=== PATIENT | female | born 1960 | race African-American/Black ===

== ENCOUNTER 2019-10-30 17:13 | Inpatient (IN) | payer MEDICARE, OTHER, MEDICAID ==
[~2019-10-30] VITALS: Ht 157.5 cm; Wt 42.6 kg
[~2019-10-30 17:13] MED LIST: FERR325T30; SERT-112 PO
[2019-10-30] MEDS ORDERED: MORPHINE SULFATE 4 MG/ML CPJ (NOT FOR IM USE) IV STA (18:34)
[2019-10-30] MEDS ORDERED: ONDANSETRON HCL 4MG/2ML INJ IV STA (18:34)
[2019-10-30] MEDS ORDERED: SODIUM CHLORIDE 0.9% 1,000 ML IV ONE (18:34)
[2019-10-30 19:25] LABS: HEMATOCRIT. 39.9 % (36.0-48.0); HEMOGLOBIN. 13.2 g/dL (12.0-16.0); MEAN CORPUSCULAR HEMOGLOBIN 27.8 pg (28.0-32.0); MEAN PLATELET VOLUME 8.5 fl (7.4-10.4); PLATELET 336 x1000/uL (130-400); RED BLOOD CELL COUNT 4.76 mill/uL (4.2-5.4); RED CELL DISTRIBUTION WIDTH 17.3 % (11.6-14.6)
[2019-10-30 19:26] LABS: CHLORIDE 102 mEq/L (98-107)
[2019-10-30 19:30] LABS: PROTHROMBIN TIME 10.3 sec (9.6-11.0)
[2019-10-30 19:54] LABS: PLATELET ESTIMATE NORMAL
[2019-10-30] MEDS ORDERED: FUROSEMIDE 100MG/10ML VIAL IV STA (20:47)
[2019-10-30] MEDS ORDERED: DEXTROSE 50% WATER 50ML SYRINGE IV ONE (21:00)
[2019-10-30] MEDS ORDERED: CALCIUM CHLORIDE 1GM/10ML SYR IV ONE (21:00)
[2019-10-30] MEDS ORDERED: INSULIN REGULAR (HUMULIN R) 300UNITS/3ML IV ONE (21:00)
[2019-10-30] MEDS ORDERED: IPRATROPIUM/ALBUTEROL 0.5-3(2.5)MG/3ML NEB ORI PRN (22:00)
[2019-10-30] MEDS ORDERED: LORAZEPAM 0.5MG TABLET PO PRN (22:00)
[2019-10-30] MEDS ORDERED: CLONIDINE 0.1MG TABLET PO PRN (22:00)
[2019-10-30] MEDS ORDERED: DOCUSATE SODIUM 100MG CAPSULE PO PRN (22:00)
[2019-10-30] MEDS ORDERED: MAGNESIUM/ALUMINUM HYDROXIDE/SIMETHICONE 30ML UDC PO PRN (22:00)
[2019-10-30] MEDS ORDERED: DIPHENHYDRAMINE 50MG/ML VIAL IV PRN (22:00)
[2019-10-30] MEDS ORDERED: TRAMADOL 50MG TABLET PO PRN (22:00)
[2019-10-30] MEDS ORDERED: ACETAMINOPHEN 325MG TABLET PO PRN ×2 (22:00)
[2019-10-30] MEDS ORDERED: GUAIFENESIN 200MG/10ML SUGAR FREE UDC PO PRN (22:00)
[2019-10-30] MEDS ORDERED: ZOLPIDEM TARTRATE 5MG TABLET PO PRN (22:00)
[2019-10-30] MEDS ORDERED: ENOXAPARIN 40MG/0.4ML SYR SUBCUT SCH (22:00)
[2019-10-30] MEDS ORDERED: NITROGLYCERIN 0.4MG TABLET SL SL PRN (22:00)
[2019-10-30] MEDS ORDERED: CEFTRIAXONE 1 G PREMIX 50 ML IV SCH (22:30)
[2019-10-30] MEDS: INSULIN LISPRO 100 UNITS/ML SUBCUT SCH (22:30)
[2019-10-30] MEDS ORDERED: MORPHINE SULFATE 4 MG/ML CPJ (NOT FOR IM USE) IV PRN (22:30)
[2019-10-30 22:31] LABS: T4 FREE 1.12 ng/dL (0.76-1.46)
[2019-10-30 22:46] LABS: FOLIC ACID (FOLATE) SERUM 3.6 ng/mL (>5.38)
[2019-10-30] MEDS ORDERED: SODIUM POLYSTYRENE SULFONATE 15 G/60 ML BOT PO NR (23:00)
[2019-10-30] MEDS: BLOOD SUGAR DIAGNOSTIC STRIP TEST SCH (23:04)
[2019-10-30] MEDS ORDERED: CEFTRIAXONE SODIUM 1 G/VIAL ONE (23:12)
[2019-10-30] MEDS: CEFTRIAXONE 1,000 MG in DEXTROSE 5% WATER 50 ML IV SCH (23:52)
[2019-10-31] VITALS (11 sets, daily range): BP systolic 81–147; BP diastolic 39–99
[2019-10-31] MEDS: ONDANSETRON HCL 4MG/2ML INJ IV PRN (04:24)
[2019-10-31] MEDS: BLOOD SUGAR DIAGNOSTIC STRIP TEST SCH ×4 (06:50→21:00)
[2019-10-31] MEDS: INSULIN LISPRO 100 UNITS/ML SUBCUT SCH ×4 (07:20→21:00)
[2019-10-31 07:50] LABS: HEMOGLOBIN. 13.9 g/dL (12.0-16.0); MEAN CORPUSCULAR HEMOGLOBIN 27.6 pg (28.0-32.0); MEAN CORPUSCULAR VOLUME 85.4 fL (81.0-99.0); MEAN PLATELET VOLUME 8.7 fl (7.4-10.4); PLATELET 305 x1000/uL (130-400); RED BLOOD CELL COUNT 5.04 mill/uL (4.2-5.4); RED CELL DISTRIBUTION WIDTH 17.4 % (11.6-14.6)
[2019-10-31 08:00] LABS: CHLORIDE 98 mEq/L (98-107)
[2019-10-31 08:07] LABS: PHOSPHORUS 7.7 mg/dL (2.5-4.9)
[2019-10-31 08:08] LABS: LDL CHOLESTEROL 147 mg/dL (5-100)
[2019-10-31 08:09] LABS: CREATINE KINASE 131 IU/L (26-192); CREATINE KINASE MB FRACTION 1.6 ng/mL (0.5-3.6); HDL CHOLESTEROL 51 mg/dL (40-59)
[2019-10-31] MEDS ORDERED: SODIUM BICARBONATE 8.4% 1 MEQ/ML 50ML SYR IV NR (08:52)
[2019-10-31] MEDS: ZINC SULFATE 220 MG ( 50 ) CAPSULE PO SCH (09:00)
[2019-10-31] MEDS: ASCORBIC ACID 500 MG TABLET PO SCH ×2 (09:00→21:31)
[2019-10-31] MEDS: FAMOTIDINE 20MG TABLET PO SCH (09:00)
[2019-10-31] MEDS ORDERED: DEXTROSE 50% WATER 50ML SYRINGE IV SCH (09:30)
[2019-10-31] MEDS ORDERED: INSULIN REGULAR (HUMULIN R) UD 100 UNITS/ML SYR IV SCH (09:30)
[2019-10-31] MEDS ORDERED: SODIUM BICARBONATE 4% (2.4MEQ) 5ML VIAL IV ONE (10:15)
[2019-10-31] MEDS ORDERED: LIDOCAINE HCL 1% 20ML VIAL (Pyxis) INJ ONE (10:16)
[2019-10-31] MEDS ORDERED: HEPARIN 1000 UNITS/ML 10ML ONE (10:16)
[2019-10-31] MEDS: SODIUM CHLORIDE 0.9% 1,000 ML IV SCH ×2 (13:30→22:25)
[2019-10-31 16:04] LABS: CREATINE KINASE MB FRACTION 2.4 ng/mL (0.5-3.6)
[2019-10-31 17:11] LABS: CLARITY URINE CLOUDY (CLEAR); COLOR URINE YELLOW (YELLOW); KETONES URINE TRACE (NEGATIVE); LEUKOCYTE ESTERASE URINE 2+ (NEGATIVE); NITRITE URINE NEGATIVE (NEGATIVE); OCCULT BLOOD URINE 3+ (NEGATIVE); PROTEIN URINE 2+ (NEGATIVE); SPECIFIC GRAVITY URINE 1.016 (1.005-1.030); UROBILINOGEN URINE 0.2 E.U./dL (0.2-1.0)
[2019-10-31 17:34] LABS: PLATELET ESTIMATE NORMAL
[2019-10-31] MEDS: ENOXAPARIN 30MG/0.3ML SYR SUBCUT SCH (18:08)
[2019-10-31] MEDS: CEFTRIAXONE 1,000 MG in DEXTROSE 5% WATER 50 ML IV SCH (21:31)
[2019-10-31] MEDS: DEXTROSE 50% WATER 50ML SYRINGE IV PRN (21:56)
[2019-11-01] VITALS (12 sets, daily range): BP systolic 91–114; BP diastolic 54–77
[2019-11-01] MEDS: BLOOD SUGAR DIAGNOSTIC STRIP TEST SCH ×4 (06:38→20:43)
[2019-11-01] MEDS: INSULIN LISPRO 100 UNITS/ML SUBCUT SCH ×4 (06:38→20:42)
[2019-11-01 07:21] LABS: HEMATOCRIT. 37.9 % (36.0-48.0); HEMOGLOBIN. 12.4 g/dL (12.0-16.0); MEAN CORPUSCULAR HEMOGLOBIN 27.9 pg (28.0-32.0); MEAN PLATELET VOLUME 8.8 fl (7.4-10.4); PLATELET 230 x1000/uL (130-400); RED BLOOD CELL COUNT 4.46 mill/uL (4.2-5.4); RED CELL DISTRIBUTION WIDTH 17.3 % (11.6-14.6)
[2019-11-01 07:26] LABS: PHOSPHORUS 3.4 mg/dL (2.5-4.9)
[2019-11-01] MEDS: ENOXAPARIN 30MG/0.3ML SYR SUBCUT SCH (08:58)
[2019-11-01] MEDS: ASCORBIC ACID 500 MG TABLET PO SCH ×2 (08:58→20:42)
[2019-11-01] MEDS: FAMOTIDINE 20MG TABLET PO SCH (08:58)
[2019-11-01] MEDS: ZINC SULFATE 220 MG ( 50 ) CAPSULE PO SCH (08:58)
[2019-11-01] MEDS: DEXT 5%/0.9% NACL 1,000 ML IV SCH ×2 (09:14→20:42)
[2019-11-01 10:56] LABS: BG BASE EXCESS 1.3 mmol/L (-2.0-2.0); BG CARBOXYHEMOGLOBIN 0.1 % (0.5-1.5); BG DEOXYHEMOGLOBIN 2.8 % (0.0-5.0); BG FRACTION INSPIRED OXYGEN 21; BG HCO3 ACT 25.3 mmol/L (22.0-26.0); BG METHEMOGLOBIN 0.4 % (0.0-1.5); BG OXYGEN SATURATION 97.2 % (92.0-98.5); BG OXYHEMOGLOBIN 96.7 % (94.0-97.0); BG PCO2 37.7 mmHg (35.0-45.0); BG PH 7.444 (7.350-7.450); BG PO2 97.9 mmHg (75.0-100.0); BG SAMPLE SITE LEFT BRACHIAL; BG TOTAL HEMOGLOBIN 12.9 g/dL (12.0-18.0); BG VENT MODE ROOM AIR
[2019-11-01 13:12] LABS: PLATELET ESTIMATE NORMAL
[2019-11-01] MEDS ORDERED: MORPHINE SULFATE 2 MG/ML CPJ (NOT FOR IM USE) IV PRN (14:42)
[2019-11-01] MEDS: CEFTRIAXONE 1,000 MG in DEXTROSE 5% WATER 50 ML IV SCH (20:42)
[2019-11-02] VITALS (20 sets, daily range): BP systolic 97–122; BP diastolic 57–85
[2019-11-02] MEDS: DEXT 5%/0.9% NACL 1,000 ML IV SCH ×2 (05:00→17:35)
[2019-11-02] MEDS: DEXTROSE 50% WATER 50ML SYRINGE IV PRN ×3 (05:38→20:39)
[2019-11-02] MEDS: BLOOD SUGAR DIAGNOSTIC STRIP TEST SCH ×4 (05:39→20:40)
[2019-11-02 07:05] LABS: HEMATOCRIT. 34.5 % (36.0-48.0); HEMOGLOBIN. 11.1 g/dL (12.0-16.0); MEAN CORPUSCULAR HEMOGLOBIN 27.6 pg (28.0-32.0); MEAN CORPUSCULAR VOLUME 85.5 fL (81.0-99.0); MEAN PLATELET VOLUME 8.7 fl (7.4-10.4); PLATELET 182 x1000/uL (130-400); RED BLOOD CELL COUNT 4.04 mill/uL (4.2-5.4); RED CELL DISTRIBUTION WIDTH 16.9 % (11.6-14.6)
[2019-11-02] MEDS: INSULIN LISPRO 100 UNITS/ML SUBCUT SCH ×4 (07:20→20:40)
[2019-11-02] MEDS ORDERED: IOHEXOL-300 50 ML BOTTLE IV ONE (07:21)
[2019-11-02] MEDS ORDERED: LIDOCAINE HCL 1% 20ML VIAL (Pyxis) INJ ONE (07:21)
[2019-11-02] MEDS ORDERED: SODIUM BICARBONATE 4% (2.4MEQ) 5ML VIAL IV ONE (07:21)
[2019-11-02 07:24] LABS: HEPATITIS B SURFACE AB < 3.1 mIU/mL
[2019-11-02] MEDS: ONDANSETRON HCL 4MG/2ML INJ IV PRN (07:31)
[2019-11-02 07:34] LABS: HEPATITIS B SURFACE ANTIGEN NEGATIVE
[2019-11-02 07:51] LABS: PHOSPHORUS 1.8 mg/dL (2.5-4.9)
[2019-11-02] MEDS ORDERED: FENTANYL CITRATE/PF 50MCG/ML 2ML VIAL ONE (08:03)
[2019-11-02] MEDS ORDERED: FENTANYL CITRATE/PF 50MCG/ML 2ML VIAL IV ONE (08:30)
[2019-11-02] MEDS ORDERED: POTASSIUM PHOS,M-BASIC-D-BASIC 15 MMOL in DEXT 5% WATER 245 ML IV NR (10:00)
[2019-11-02] MEDS: ZINC SULFATE 220 MG ( 50 ) CAPSULE PO SCH (11:15)
[2019-11-02] MEDS: FAMOTIDINE 20MG TABLET PO SCH (11:15)
[2019-11-02] MEDS: ASCORBIC ACID 500 MG TABLET PO SCH ×2 (11:15→20:39)
[2019-11-02 16:27] LABS: PLATELET ESTIMATE NORMAL
[2019-11-02] MEDS: CEFTRIAXONE 1,000 MG in DEXTROSE 5% WATER 50 ML IV SCH (20:39)
[2019-11-03] VITALS (9 sets, daily range): BP systolic 101–129; BP diastolic 58–82
[2019-11-03] MEDS: DEXT 5%/0.9% NACL 1,000 ML IV SCH ×2 (02:01→11:00)
[2019-11-03] MEDS: INSULIN LISPRO 100 UNITS/ML SUBCUT SCH ×2 (05:43→11:12)
[2019-11-03] MEDS: BLOOD SUGAR DIAGNOSTIC STRIP TEST SCH ×2 (05:43→11:12)
[2019-11-03] MEDS: ASCORBIC ACID 500 MG TABLET PO SCH (07:53)
[2019-11-03] MEDS: ZINC SULFATE 220 MG ( 50 ) CAPSULE PO SCH (07:53)
[2019-11-03] MEDS: FAMOTIDINE 20MG TABLET PO SCH (07:53)
[2019-11-03] MEDS: ENOXAPARIN 30MG/0.3ML SYR SUBCUT SCH (09:00)
[2019-11-03] MEDS ORDERED: MEGESTROL ACETATE 400 MG/10 ML UDC PO SCH (09:00)
[2019-11-03] MEDS: ONDANSETRON HCL 4MG/2ML INJ IV PRN (11:05)
== END 2019-11-03 15:15 | DRG 871 ==
LOC: ER 17:13 → SUPCPDRO 21:53 → MICUSO 21:57 → 3WST 10-31 03:51
PROVIDERS: ADMIT Internal Medicine; ATTEND Internal Medicine
PROC: 02H633Z Insertion of Infusion Device into Right Atrium, Percutaneous Approach (ICD-10-PCS; principal; 2019-10-31)
PROC: B548ZZA Ultrasonography of Superior Vena Cava, Guidance (ICD-10-PCS; 2019-10-31)
PROC: 0T9430Z Drainage of Left Kidney Pelvis with Drainage Device, Percutaneous Approach (ICD-10-PCS; 2019-11-02)
DX: A41.9 Sepsis, unspecified organism (principal); N17.0 Acute kidney failure with tubular necrosis; E43 Unspecified severe protein-calorie malnutrition; N13.8 Other obstructive and reflux uropathy; N13.30 Unspecified hydronephrosis; E87.1 Hypo-osmolality and hyponatremia; Z68.1 Body mass index [BMI] 19.9 or less, adult; E87.5 Hyperkalemia; E11.9 Type 2 diabetes mellitus without complications; I10 Essential (primary) hypertension; Z87.440 Personal history of urinary (tract) infections; Z79.899 Other long term (current) drug therapy; Z85.43 Personal history of malignant neoplasm of ovary; Z91.14 Patient's other noncompliance with medication regimen; Z03.818 Encounter for observation for suspected exposure to other biological agents ruled out
CPT/HCPCS: 36415; 36600; 50432; 71045; 74176; 76770; 76937; 80048; 80053; 80061; 81003; 82375; 82550; 82553; 82607; 82746; 82805; 82962; 83036; 83540; 83550; 83605; 83735; 84100; 84145; 84439; 84443; 84484; 85025; 85379; 86304; 86705; 86706; 86803; 87340; 93005; 93306; 93970; 97165; 99152; 99153; 99285; C1729; C1752; C1769; C1887; J0696; J1200; J1644; J1650; J1815; J1940; J2270; J2405; J3010; J3490; J7030; J7042; J7060; L8514; Q9967; G0500; U0003-CS

== ENCOUNTER 2019-11-06 10:50 | Inpatient (IN) | payer MEDICARE, OTHER ==
[~2019-11-06] VITALS: Ht 160 cm; Wt 54.9 kg
[2019-11-06 12:21] LABS: HEMATOCRIT. 34.2 % (36.0-48.0); HEMOGLOBIN. 11.3 g/dL (12.0-16.0); MEAN CORPUSCULAR HEMOGLOBIN 27.8 pg (28.0-32.0); MEAN CORPUSCULAR VOLUME 84.5 fL (81.0-99.0); MEAN PLATELET VOLUME 8.7 fl (7.4-10.4); PLATELET 107 x1000/uL (130-400); RED BLOOD CELL COUNT 4.05 mill/uL (4.2-5.4); RED CELL DISTRIBUTION WIDTH 16.2 % (11.6-14.6)
[2019-11-06 12:24] LABS: CHLORIDE 111 mEq/L (98-107)
[2019-11-06 12:27] LABS: INR 1.1
[2019-11-06] MEDS ORDERED: LIDOCAINE HCL 1% 20ML VIAL (Pyxis) INJ ONE (12:37)
[2019-11-06] MEDS ORDERED: IOHEXOL-300 50 ML BOTTLE IV ONE (12:37)
[2019-11-06] MEDS ORDERED: SODIUM BICARBONATE 4% (2.4MEQ) 5ML VIAL IV ONE (12:37)
[2019-11-06 12:58] LABS: PLATELET ESTIMATE SLIGHTLY DECREASED
[2019-11-06] MEDS ORDERED: POTASSIUM CHLORIDE 20MEQ TABLET SR PO ONE (13:45)
[2019-11-06 14:41] LABS: CLARITY URINE CLOUDY (CLEAR); KETONES URINE 1+ (NEGATIVE); LEUKOCYTE ESTERASE URINE 2+ (NEGATIVE); NITRITE URINE NEGATIVE (NEGATIVE); OCCULT BLOOD URINE 3+ (NEGATIVE); PH URINE 6.5 (4.5-8.0); PROTEIN URINE 2+ (NEGATIVE); SPECIFIC GRAVITY URINE 1.018 (1.005-1.030)
[2019-11-06] MEDS ORDERED: DEXTROSE 50% WATER 50ML SYRINGE IV ONE ×2 (14:45→22:15)
[2019-11-06 15:19] LABS: COLOR URINE YELLOW (YELLOW)
[2019-11-06] MEDS ORDERED: CEFTRIAXONE 1 G PREMIX 50 ML IV ONE (17:45)
[2019-11-06] MEDS: DEXT 5%/LACTATED RINGERS 1,000 ML IV SCH (18:51)
[2019-11-06] MEDS ORDERED: ZOLPIDEM TARTRATE 5MG TABLET PO PRN (19:00)
[2019-11-06] MEDS ORDERED: GUAIFENESIN 200MG/10ML SUGAR FREE UDC PO PRN (19:00)
[2019-11-06] MEDS ORDERED: ACETAMINOPHEN 325MG TABLET PO PRN ×2 (19:00)
[2019-11-06] MEDS ORDERED: ONDANSETRON HCL 4MG/2ML INJ IV PRN (19:00)
[2019-11-06] MEDS ORDERED: IPRATROPIUM/ALBUTEROL 0.5-3(2.5)MG/3ML NEB NEB PRN (19:00)
[2019-11-06] MEDS ORDERED: TRAMADOL 50MG TABLET PO PRN (19:00)
[2019-11-06] MEDS ORDERED: LORAZEPAM 0.5MG TABLET PO PRN (19:00)
[2019-11-06] MEDS ORDERED: NA PHOS,M-B/NA PHOS,DI-BA ENEMA 118ML PR PRN (19:00)
[2019-11-06] MEDS ORDERED: KETOROLAC 15MG/ML VIAL IV PRN (19:00)
[2019-11-06] MEDS ORDERED: CLONIDINE 0.1MG TABLET PO PRN (19:00)
[2019-11-06] MEDS ORDERED: NITROGLYCERIN 0.4MG TABLET SL SL PRN (19:00)
[2019-11-06] MEDS ORDERED: DOCUSATE SODIUM 100MG CAPSULE PO PRN (19:00)
[2019-11-06] MEDS ORDERED: MAGNESIUM/ALUMINUM HYDROXIDE/SIMETHICONE 30ML UDC PO PRN (19:00)
[2019-11-06] MEDS: FAMOTIDINE 20MG TABLET PO SCH (21:25)
[2019-11-07] VITALS (17 sets, daily range): BP systolic 108–156; BP diastolic 65–104
[2019-11-07] MEDS: DEXT 5%/LACTATED RINGERS 1,000 ML IV SCH (01:35)
[2019-11-07] MEDS: ASCORBIC ACID 500 MG TABLET PO SCH ×3 (01:35→21:00)
[2019-11-07] MEDS ORDERED: DEXTROSE 50% WATER 50ML SYRINGE IV PRN (03:30)
[2019-11-07 07:00] LABS: HEMATOCRIT. 34.2 % (36.0-48.0); HEMOGLOBIN. 11.3 g/dL (12.0-16.0); MEAN CORPUSCULAR HEMOGLOBIN 27.7 pg (28.0-32.0); MEAN CORPUSCULAR VOLUME 84.2 fL (81.0-99.0); MEAN PLATELET VOLUME 8.6 fl (7.4-10.4); PLATELET 96 x1000/uL (130-400); RED BLOOD CELL COUNT 4.06 mill/uL (4.2-5.4); RED CELL DISTRIBUTION WIDTH 16.1 % (11.6-14.6)
[2019-11-07] MEDS: BLOOD SUGAR DIAGNOSTIC STRIP TEST SCH ×4 (07:15→21:00)
[2019-11-07 07:27] LABS: CHLORIDE 110 mEq/L (98-107)
[2019-11-07 07:34] LABS: PHOSPHORUS 1.1 mg/dL (2.5-4.9)
[2019-11-07] MEDS ORDERED: FENTANYL CITRATE/PF 50MCG/ML 2ML VIAL ONE (08:49)
[2019-11-07] MEDS: ZINC SULFATE 220 MG ( 50 ) CAPSULE PO SCH (09:00)
[2019-11-07] MEDS ORDERED: FENTANYL CITRATE/PF 50MCG/ML 2ML VIAL IV SCH (09:00)
[2019-11-07] MEDS: FAMOTIDINE 20MG TABLET PO SCH ×2 (09:00→21:00)
[2019-11-07] MEDS ORDERED: APIXABAN 5 MG TABLET PO SCH (09:45)
[2019-11-07] MEDS ORDERED: POTASSIUM CHLORIDE INJ 40 MEQ in DEXT 5% WATER 500 ML IV SCH (10:00)
[2019-11-07] MEDS: APIXABAN 5 MG TABLET PO SCH ×3 (10:00→17:17)
[2019-11-07] MEDS ORDERED: POTASSIUM PHOS,M-BASIC-D-BASIC 30 MMOL in DEXT 5% WATER 500 ML IV SCH (12:00)
[2019-11-07] MEDS ORDERED: MAGNESIUM 4 G PREMIX 100 ML IV SCH (12:00)
[2019-11-07 14:13] LABS: ATYPICAL LYMPHOCYTES 1; PLATELET ESTIMATE SLIGHTLY DECREASED
[2019-11-07] MEDS ORDERED: CEFTRIAXONE 1,000 MG in DEXTROSE 5% WATER 50 ML IV SCH ×4 (18:00)
[2019-11-08] VITALS: BP 119/66
[2019-11-08 04:00] VITALS: BP 150/88
[2019-11-08] MEDS: BLOOD SUGAR DIAGNOSTIC STRIP TEST SCH ×2 (07:20→12:20)
[2019-11-08 08:00] VITALS: BP 136/79
[2019-11-08] MEDS: FAMOTIDINE 20MG TABLET PO SCH (09:00)
[2019-11-08] MEDS: ASCORBIC ACID 500 MG TABLET PO SCH (09:00)
[2019-11-08] MEDS: APIXABAN 5 MG TABLET PO SCH (09:00)
[2019-11-08] MEDS: ZINC SULFATE 220 MG ( 50 ) CAPSULE PO SCH (09:00)
[2019-11-08 12:00] VITALS: BP 144/83
[2019-11-08 13:20] VITALS: BP 144/83
== END 2019-11-08 13:45 | DRG 698 ==
LOC: ER 11:05 → 6EST 17:35 → ENRESERV 20:19
PROVIDERS: ADMIT Internal Medicine; ATTEND Internal Medicine
PROC: 0T25X0Z Change Drainage Device in Kidney, External Approach (ICD-10-PCS; principal; 2019-11-07)
PROC: BT121ZZ Fluoroscopy of Left Kidney using Low Osmolar Contrast (ICD-10-PCS; 2019-11-07)
DX: T83.092A Other mechanical complication of nephrostomy catheter, initial encounter (principal); E43 Unspecified severe protein-calorie malnutrition; G92 Toxic encephalopathy; I82.411 Acute embolism and thrombosis of right femoral vein; E83.51 Hypocalcemia; E83.42 Hypomagnesemia; E87.6 Hypokalemia; F03.90 Unspecified dementia, unspecified severity, without behavioral disturbance, psychotic disturbance, mood disturbance, and anxiety; I10 Essential (primary) hypertension; D63.8 Anemia in other chronic diseases classified elsewhere; L89.210 Pressure ulcer of right hip, unstageable; Y83.8 Other surgical procedures as the cause of abnormal reaction of the patient, or of later complication, without mention of misadventure at the time of the procedure; E11.9 Type 2 diabetes mellitus without complications; N30.90 Cystitis, unspecified without hematuria; Z85.43 Personal history of malignant neoplasm of ovary; Y92.89 Other specified places as the place of occurrence of the external cause; Z79.899 Other long term (current) drug therapy; Z68.21 Body mass index [BMI] 21.0-21.9, adult
CPT/HCPCS: 36415; 50435; 80053; 81003; 82962; 83735; 84100; 85025; 87070; 87186; 93005; 93970; 96365; 99152; 99153; 99285; C1729; C1769; J0696; J3010; J3475; J3480; J3490; J7060; Q9967; G0500

== ENCOUNTER 2019-11-29 11:47 | Inpatient (IN) | payer MEDICARE, OTHER ==
[~2019-11-29] VITALS: Ht 152.4 cm; Wt 37.2 kg
[2019-11-29] MEDS ORDERED: SODIUM CHLORIDE 0.9% 1000ML BAG (SEPSIS BOLUS) IV ONE (12:30)
[2019-11-29] MEDS ORDERED: CEFTRIAXONE 1 G PREMIX 50 ML IV ONE (12:30)
[2019-11-29 12:59] LABS: HEMATOCRIT. 31.1 % (36.0-48.0); MEAN CORPUSCULAR HEMOGLOBIN 26.8 pg (28.0-32.0); MEAN CORPUSCULAR VOLUME 83.6 fL (81.0-99.0); MEAN PLATELET VOLUME 8.6 fl (7.4-10.4); PLATELET 221 x1000/uL (130-400); RED BLOOD CELL COUNT 3.72 mill/uL (4.2-5.4)
[2019-11-29 13:04] LABS: CHLORIDE 109 mEq/L (98-107)
[2019-11-29 13:07] LABS: INR 1.1
[2019-11-29 13:10] LABS: CLARITY URINE TURBID (CLEAR); COLOR URINE ORANGE (YELLOW); KETONES URINE NEGATIVE (NEGATIVE); LEUKOCYTE ESTERASE URINE 3+ (NEGATIVE); NITRITE URINE NEGATIVE (NEGATIVE); OCCULT BLOOD URINE 3+ (NEGATIVE); PH URINE 7.5 (4.5-8.0); PROTEIN URINE 3+ (NEGATIVE); SPECIFIC GRAVITY URINE 1.015 (1.005-1.030); UROBILINOGEN URINE 0.2 E.U./dL (0.2-1.0)
[2019-11-29 13:19] LABS: PLATELET ESTIMATE NORMAL
[2019-11-29] MEDS: SODIUM CHLORIDE 0.9% 1,000 ML IV SCH ×2 (13:53→23:19)
[2019-11-29] MEDS ORDERED: KCL 20MEQ/100ML PREMIX 100 ML IV NR (14:00)
[2019-11-29] MEDS ORDERED: LEVOFLOXACIN 500MG PREMIX 100 ML IV SCH (14:00)
[2019-11-29] MEDS ORDERED: ONDANSETRON HCL 4MG/2ML INJ IV PRN (14:00)
[2019-11-29] MEDS ORDERED: GUAIFENESIN 200MG/10ML SUGAR FREE UDC PO PRN (14:00)
[2019-11-29] MEDS ORDERED: TRAMADOL 50MG TABLET PO PRN (14:00)
[2019-11-29] MEDS ORDERED: POTASSIUM CHLORIDE 20MEQ TABLET SR PO NR (14:00)
[2019-11-29] MEDS ORDERED: MAGNESIUM/ALUMINUM HYDROXIDE/SIMETHICONE 30ML UDC PO PRN (14:00)
[2019-11-29] MEDS ORDERED: DOCUSATE SODIUM 100MG CAPSULE PO PRN (14:00)
[2019-11-29] MEDS ORDERED: NITROGLYCERIN 0.4MG TABLET SL SL PRN (14:00)
[2019-11-29] MEDS ORDERED: CEFEPIME 1,000 MG in DEXTROSE 5% WATER 50 ML IV SCH (14:00)
[2019-11-29] MEDS ORDERED: ACETAMINOPHEN 325MG TABLET PO PRN ×2 (14:00)
[2019-11-29] MEDS ORDERED: CLONIDINE 0.1MG TABLET PO PRN (14:00)
[2019-11-29] MEDS ORDERED: IPRATROPIUM/ALBUTEROL 0.5-3(2.5)MG/3ML NEB NEB PRN (14:00)
[2019-11-29 15:57] LABS: CREATINE KINASE 32 IU/L (26-192)
[2019-11-29 15:58] LABS: CREATINE KINASE MB FRACTION < 1.0 ng/mL (0.5-3.6)
[2019-11-29 16:50] VITALS: BP 107/66
[2019-11-29] MEDS: BLOOD SUGAR DIAGNOSTIC STRIP TEST SCH ×2 (17:00→21:05)
[2019-11-29 17:10] VITALS: BP 115/78
[2019-11-29] MEDS: INSULIN LISPRO 100 UNITS/ML SUBCUT SCH ×2 (17:50→21:00)
[2019-11-29] MEDS: APIXABAN 5 MG TABLET PO SCH (18:00)
[2019-11-29 20:00] VITALS: BP 172/81
[2019-11-29] MEDS: CEFEPIME 1,000 MG in DEXTROSE 5% WATER 50 ML IV SCH (20:55)
[2019-11-29] MEDS: FAMOTIDINE 20MG TABLET PO SCH (21:04)
[2019-11-29] MEDS: KETOROLAC 15MG/ML VIAL IV PRN (21:05)
[2019-11-30] VITALS: BP 128/80
[2019-11-30 05:55] VITALS: BP 124/92
[2019-11-30] MEDS: APIXABAN 5 MG TABLET PO SCH ×3 (06:00→17:37)
[2019-11-30] MEDS: DEXTROSE 50% WATER 50ML SYRINGE IV PRN (07:12)
[2019-11-30] MEDS: BLOOD SUGAR DIAGNOSTIC STRIP TEST SCH ×4 (07:14→21:45)
[2019-11-30] MEDS: INSULIN LISPRO 100 UNITS/ML SUBCUT SCH ×4 (07:50→21:00)
[2019-11-30 08:00] VITALS: BP 120/81
[2019-11-30] MEDS: CEFEPIME 1,000 MG in DEXTROSE 5% WATER 50 ML IV SCH ×2 (09:49→21:44)
[2019-11-30] MEDS: DEXT 5%/0.9% NACL 1,000 ML IV SCH ×2 (11:28→21:44)
[2019-11-30 12:00] VITALS: BP 124/81
[2019-11-30] MEDS: LEVOFLOXACIN 500MG PREMIX 100 ML IV SCH (13:16)
[2019-11-30 16:00] VITALS: BP 119/88
[2019-11-30] MEDS: MEGESTROL ACETATE 40MG TABLET PO SCH ×2 (16:50→17:00)
[2019-11-30 20:00] VITALS: BP 123/86
[2019-11-30] MEDS: FAMOTIDINE 20MG TABLET PO SCH (21:44)
[2019-12-01] VITALS: BP 120/81
[2019-12-01 04:00] VITALS: BP 130/82
[2019-12-01] MEDS: APIXABAN 5 MG TABLET PO SCH ×2 (06:54→17:20)
[2019-12-01] MEDS: BLOOD SUGAR DIAGNOSTIC STRIP TEST SCH ×4 (06:55→21:50)
[2019-12-01] MEDS: DEXT 5%/0.9% NACL 1,000 ML IV SCH ×2 (06:55→16:45)
[2019-12-01] MEDS: INSULIN LISPRO 100 UNITS/ML SUBCUT SCH ×4 (07:08→21:00)
[2019-12-01 08:00] VITALS: BP 133/89
[2019-12-01] MEDS: CEFEPIME 1,000 MG in DEXTROSE 5% WATER 50 ML IV SCH ×2 (09:04→21:52)
[2019-12-01] MEDS: MEGESTROL ACETATE 40MG TABLET PO SCH ×2 (09:04→17:20)
[2019-12-01 12:00] VITALS: BP 117/81
[2019-12-01] MEDS: LEVOFLOXACIN 500MG PREMIX 100 ML IV SCH (13:15)
[2019-12-01 16:00] VITALS: BP 104/75
[2019-12-01 20:00] VITALS: BP 121/85
[2019-12-01] MEDS: FAMOTIDINE 20MG TABLET PO SCH (21:39)
[2019-12-02] VITALS: BP 116/84
[2019-12-02] MEDS: DEXT 5%/0.9% NACL 1,000 ML IV SCH ×3 (02:29→23:33)
[2019-12-02 04:00] VITALS: BP 139/96
[2019-12-02] MEDS: APIXABAN 5 MG TABLET PO SCH ×2 (06:20→17:05)
[2019-12-02] MEDS: BLOOD SUGAR DIAGNOSTIC STRIP TEST SCH ×4 (07:01→21:15)
[2019-12-02] MEDS: DEXTROSE 50% WATER 50ML SYRINGE IV PRN ×2 (07:02→21:13)
[2019-12-02] MEDS: INSULIN LISPRO 100 UNITS/ML SUBCUT SCH ×4 (07:34→21:00)
[2019-12-02 08:00] VITALS: BP 137/85
[2019-12-02] MEDS: CEFEPIME 1,000 MG in DEXTROSE 5% WATER 50 ML IV SCH ×2 (08:47→21:02)
[2019-12-02] MEDS: MEGESTROL ACETATE 40MG TABLET PO SCH ×2 (08:47→17:05)
[2019-12-02] MEDS: KETOROLAC 15MG/ML VIAL IV PRN (08:47)
[2019-12-02 12:00] VITALS: BP 124/81
[2019-12-02] MEDS: LEVOFLOXACIN 500MG PREMIX 100 ML IV SCH (13:14)
[2019-12-02 16:00] VITALS: BP 121/86
[2019-12-02 20:00] VITALS: BP 101/52
[2019-12-02] MEDS: FAMOTIDINE 20MG TABLET PO SCH (21:02)
[2019-12-03] VITALS: BP 120/74
[2019-12-03 04:00] VITALS: BP 169/98
[2019-12-03] MEDS: APIXABAN 5 MG TABLET PO SCH ×2 (06:47→17:01)
[2019-12-03] MEDS: BLOOD SUGAR DIAGNOSTIC STRIP TEST SCH ×4 (07:01→20:34)
[2019-12-03] MEDS: INSULIN LISPRO 100 UNITS/ML SUBCUT SCH ×4 (07:26→20:34)
[2019-12-03 08:00] VITALS: BP 134/98
[2019-12-03] MEDS: CEFEPIME 1,000 MG in DEXTROSE 5% WATER 50 ML IV SCH (08:22)
[2019-12-03] MEDS: MEGESTROL ACETATE 40MG TABLET PO SCH ×2 (08:22→17:01)
[2019-12-03] MEDS: DEXT 5%/0.9% NACL 1,000 ML IV SCH ×2 (09:42→17:47)
[2019-12-03] MEDS: DEXTROSE 50% WATER 50ML SYRINGE IV PRN ×2 (12:11→17:13)
[2019-12-03 13:29] LABS: HEMATOCRIT. 31.5 % (36.0-48.0); HEMOGLOBIN. 9.8 g/dL (12.0-16.0); MEAN CORPUSCULAR HEMOGLOBIN 26.6 pg (28.0-32.0); MEAN CORPUSCULAR VOLUME 85.8 fL (81.0-99.0); MEAN PLATELET VOLUME 10.7 fl (7.4-10.4); PLATELET 71 x1000/uL (130-400); RED BLOOD CELL COUNT 3.67 mill/uL (4.2-5.4); RED CELL DISTRIBUTION WIDTH 16.5 % (11.6-14.6)
[2019-12-03 13:33] LABS: CHLORIDE 117 mEq/L (98-107)
[2019-12-03 14:17] LABS: PLATELET ESTIMATE DECREASED
[2019-12-03] MEDS: LEVOFLOXACIN 500MG PREMIX 100 ML IV SCH (15:02)
[2019-12-03 16:00] VITALS: BP 136/87
[2019-12-03] MEDS ORDERED: [UNRECOGNIZED DRUG - REMARK] XX SCH (16:30)
[2019-12-03] MEDS ORDERED: POTASSIUM CHLORIDE 20MEQ TABLET SR PO NR (17:00)
[2019-12-03] MEDS ORDERED: POTASSIUM CHLORIDE INJ 40 MEQ in DEXT 5% WATER 500 ML IV NR (18:00)
[2019-12-03] MEDS: CEFTAZIDIME PENTAHYDRATE 1 G in DEXTROSE 5% WATER 50 ML IV SCH (19:31)
[2019-12-03 20:00] VITALS: BP 142/97
[2019-12-03] MEDS ORDERED: COLISTIMETHATE SODIUM IV SCH (20:00)
[2019-12-03] MEDS ORDERED: SODIUM CHLORIDE 0.9% IV SCH (20:00)
[2019-12-03] MEDS: FAMOTIDINE 20MG TABLET PO SCH (20:34)
[2019-12-04] VITALS: BP 132/82
[2019-12-04] MEDS: DEXT 5%/0.9% NACL 1,000 ML IV SCH ×2 (04:45→23:08)
[2019-12-04] MEDS: APIXABAN 5 MG TABLET PO SCH ×2 (06:00→06:25)
[2019-12-04 06:04] VITALS: BP 136/99
[2019-12-04] MEDS: DEXTROSE 50% WATER 50ML SYRINGE IV PRN ×2 (06:36→12:12)
[2019-12-04] MEDS: BLOOD SUGAR DIAGNOSTIC STRIP TEST SCH ×4 (07:27→21:03)
[2019-12-04] MEDS: INSULIN LISPRO 100 UNITS/ML SUBCUT SCH ×4 (07:50→21:00)
[2019-12-04 08:00] VITALS: BP 133/82
[2019-12-04] MEDS: MEGESTROL ACETATE 40MG TABLET PO SCH ×2 (08:33→17:00)
[2019-12-04 10:38] LABS: HEMATOCRIT. 26.4 % (36.0-48.0); HEMOGLOBIN. 8.4 g/dL (12.0-16.0); MEAN CORPUSCULAR VOLUME 84.6 fL (81.0-99.0); PLATELET 64 x1000/uL (130-400); RED BLOOD CELL COUNT 3.12 mill/uL (4.2-5.4)
[2019-12-04 10:54] LABS: CHLORIDE 116 mEq/L (98-107)
[2019-12-04] MEDS ORDERED: IOHEXOL-300 100 ML BOTTLE ONE (11:05)
[2019-12-04 12:00] VITALS: BP 87/64
[2019-12-04] MEDS: CEFTAZIDIME PENTAHYDRATE 1 G in DEXTROSE 5% WATER 50 ML IV SCH ×2 (12:01→21:01)
[2019-12-04] MEDS ORDERED: POTASSIUM CHLORIDE 20MEQ/PACKET PO NR (13:15)
[2019-12-04] MEDS: COLISTIMETHATE SODIUM IV SCH ×2 (14:09→21:01)
[2019-12-04] MEDS: SODIUM CHLORIDE 0.9% IV SCH ×2 (14:09→21:01)
[2019-12-04] MEDS ORDERED: KCL 20MEQ/100ML PREMIX 100 ML IV NR (15:00)
[2019-12-04 16:00] VITALS: BP 137/95
[2019-12-04 20:00] VITALS: BP 137/95
[2019-12-04] MEDS: FAMOTIDINE 20MG TABLET PO SCH (21:00)
[2019-12-04 21:49] LABS: PLATELET ESTIMATE DECREAS
[2019-12-05] VITALS: BP 155/84
[2019-12-05 04:00] VITALS: BP 156/97
[2019-12-05] MEDS: CEFTAZIDIME PENTAHYDRATE 1 G in DEXTROSE 5% WATER 50 ML IV SCH ×2 (06:09→18:21)
[2019-12-05] MEDS: DEXTROSE 50% WATER 50ML SYRINGE IV PRN (06:11)
[2019-12-05] MEDS: BLOOD SUGAR DIAGNOSTIC STRIP TEST SCH ×4 (06:28→20:26)
[2019-12-05] MEDS: INSULIN LISPRO 100 UNITS/ML SUBCUT SCH ×4 (07:50→21:00)
[2019-12-05 08:00] VITALS: BP 128/85
[2019-12-05] MEDS: MEGESTROL ACETATE 40MG TABLET PO SCH ×2 (09:00→17:00)
[2019-12-05] MEDS: SODIUM CHLORIDE 0.9% IV SCH ×2 (09:12→20:26)
[2019-12-05] MEDS: COLISTIMETHATE SODIUM IV SCH ×2 (09:12→20:26)
[2019-12-05 12:00] VITALS: BP 158/95
[2019-12-05 13:09] LABS: HEMOGLOBIN. 8.5 g/dL (12.0-16.0); MEAN CORPUSCULAR VOLUME 82.7 fL (81.0-99.0); MEAN PLATELET VOLUME 10.4 fl (7.4-10.4); RED BLOOD CELL COUNT 3.14 mill/uL (4.2-5.4); RED CELL DISTRIBUTION WIDTH 16.5 % (11.6-14.6)
[2019-12-05 13:23] LABS: PLATELET 31 x1000/uL (130-400)
[2019-12-05] MEDS: DEXT 5%/0.9% NACL 1,000 ML IV SCH (13:39)
[2019-12-05 14:19] LABS: CHLORIDE 115 mEq/L (98-107)
[2019-12-05 14:59] LABS: PHOSPHORUS 0.8 mg/dL (2.5-4.9)
[2019-12-05] MEDS ORDERED: POTASSIUM CHLORIDE 20MEQ/PACKET PO NR (15:45)
[2019-12-05 16:00] VITALS: BP 136/85
[2019-12-05] MEDS ORDERED: KCL 20MEQ/100ML PREMIX 100 ML IV ONE (17:00)
[2019-12-05] MEDS ORDERED: POTASSIUM PHOS,M-BASIC-D-BASIC 30 MMOL in DEXT 5% WATER 500 ML IV ONE (19:00)
[2019-12-05 20:00] VITALS: BP 114/75
[2019-12-05] MEDS: FAMOTIDINE 20MG TABLET PO SCH (20:26)
[2019-12-05 22:34] LABS: PLATELET ESTIMATE MARKEDLY DECREASED
[2019-12-06] VITALS: BP 114/79
[2019-12-06] MEDS ORDERED: POTASSIUM CHLORIDE INJ 40 MEQ in DEXT 5% WATER 500 ML IV SCH (01:00)
[2019-12-06] MEDS ORDERED: MAGNESIUM 4 G PREMIX 100 ML IV ONE (01:00)
[2019-12-06 04:00] VITALS: BP 103/71
[2019-12-06] MEDS: BLOOD SUGAR DIAGNOSTIC STRIP TEST SCH ×4 (07:20→21:00)
[2019-12-06] MEDS: INSULIN LISPRO 100 UNITS/ML SUBCUT SCH ×4 (07:50→21:00)
[2019-12-06 08:00] VITALS: BP 102/69
[2019-12-06 08:38] LABS: HEMATOCRIT. 24.1 % (36.0-48.0); HEMOGLOBIN. 7.9 g/dL (12.0-16.0); MEAN CORPUSCULAR HEMOGLOBIN 26.9 pg (28.0-32.0); MEAN CORPUSCULAR VOLUME 82.4 fL (81.0-99.0); MEAN PLATELET VOLUME 10.6 fl (7.4-10.4); RED BLOOD CELL COUNT 2.92 mill/uL (4.2-5.4); RED CELL DISTRIBUTION WIDTH 16.2 % (11.6-14.6)
[2019-12-06 08:44] LABS: CHLORIDE 115 mEq/L (98-107)
[2019-12-06 08:52] LABS: PHOSPHORUS 3.7 mg/dL (2.5-4.9)
[2019-12-06] MEDS: MEGESTROL ACETATE 40MG TABLET PO SCH ×2 (09:00→17:00)
[2019-12-06] MEDS: CEFTAZIDIME PENTAHYDRATE 1 G in DEXTROSE 5% WATER 50 ML IV SCH (10:48)
[2019-12-06] MEDS: DEXT 5%/0.9% NACL 1,000 ML IV SCH ×2 (10:53→17:30)
[2019-12-06 11:59] LABS: PLATELET ESTIMATE MARKEDLY DECREASED
[2019-12-06 12:00] VITALS: BP 108/79
[2019-12-06 12:14] LABS: PLATELET 18 x1000/uL (130-400)
[2019-12-06] MEDS: SODIUM CHLORIDE 0.9% IV SCH ×2 (12:34→20:57)
[2019-12-06] MEDS: COLISTIMETHATE SODIUM IV SCH ×2 (12:34→20:57)
[2019-12-06 16:00] VITALS: BP 85/55
[2019-12-06 20:00] VITALS: BP 86/61
[2019-12-06] MEDS: FAMOTIDINE 20MG TABLET PO SCH (21:00)
[2019-12-06 23:11] LABS: BG BASE EXCESS -11.6 mmol/L (-2.0-2.0); BG CARBOXYHEMOGLOBIN 1.9 % (0.5-1.5); BG DEOXYHEMOGLOBIN 18.8 % (0.0-5.0); BG FRACTION INSPIRED OXYGEN 36; BG HCO3 ACT 12.4 mmol/L (22.0-26.0); BG METHEMOGLOBIN 0.2 % (0.0-1.5); BG OXYGEN SATURATION 80.8 % (92.0-98.5); BG OXYHEMOGLOBIN 79.1 % (94.0-97.0); BG PCO2 21.8 mmHg (35.0-45.0); BG PH 7.373 (7.350-7.450); BG PO2 50.1 mmHg (75.0-100.0); BG SAMPLE SITE RIGHT RADIAL; BG TOTAL HEMOGLOBIN 7.1 g/dL (12.0-18.0); BG VENT MODE NASAL CANNULA
[2019-12-07] VITALS (85 sets, daily range): BP systolic 47–154; BP diastolic 8–106
[2019-12-07] MEDS ORDERED: SODIUM BICARBONATE 8.4% 1 MEQ/ML 50ML SYR IV SCH (02:45)
[2019-12-07] MEDS ORDERED: SODIUM BICARBONATE 100 MEQ in DEXTROSE 5% WATER 1,000 ML IV SCH (03:00)
[2019-12-07] MEDS ORDERED: MIDAZOLAM HCL 100 MG in DEXT 5% WATER 80 ML IV PRN ×2 (03:00→10:00)
[2019-12-07] MEDS: NOREPINEPHRINE 32 MG in DEXT 5% WATER 218 ML IV PRN (03:17)
[2019-12-07 04:08] LABS: BG BASE EXCESS -10.1 mmol/L (-2.0-2.0); BG CARBOXYHEMOGLOBIN 1.3 % (0.5-1.5); BG DEOXYHEMOGLOBIN 2.3 % (0.0-5.0); BG FRACTION INSPIRED OXYGEN 100; BG HCO3 ACT 15.3 mmol/L (22.0-26.0); BG METHEMOGLOBIN 0.3 % (0.0-1.5); BG OXYGEN SATURATION 97.7 % (92.0-98.5); BG OXYHEMOGLOBIN 96.1 % (94.0-97.0); BG PCO2 31.5 mmHg (35.0-45.0); BG PH 7.303 (7.350-7.450); BG PO2 121.4 mmHg (75.0-100.0); BG SAMPLE SITE LEFT BRACHIAL; BG TIDAL VOLUME(mL) 450 mL; BG TOTAL HEMOGLOBIN 8.2 g/dL (12.0-18.0); BG VENT MODE VENT - A/C; BG VENT RATE 14 set
[2019-12-07 05:48] LABS: HEMATOCRIT. 22.8 % (36.0-48.0); HEMOGLOBIN. 7.6 g/dL (12.0-16.0); MEAN CORPUSCULAR HEMOGLOBIN 27.2 pg (28.0-32.0); RED BLOOD CELL COUNT 2.78 mill/uL (4.2-5.4); RED CELL DISTRIBUTION WIDTH 16.6 % (11.6-14.6)
[2019-12-07 05:54] LABS: CHLORIDE 116 mEq/L (98-107)
[2019-12-07] MEDS: BLOOD SUGAR DIAGNOSTIC STRIP TEST SCH ×3 (08:05→18:21)
[2019-12-07] MEDS: INSULIN LISPRO 100 UNITS/ML SUBCUT SCH ×3 (08:13→18:00)
[2019-12-07 08:27] LABS: BG CARBOXYHEMOGLOBIN 2.3 % (0.5-1.5); BG FRACTION INSPIRED OXYGEN 100; BG HCO3 ACT 16.5 mmol/L (22.0-26.0); BG METHEMOGLOBIN 0.3 % (0.0-1.5); BG OXYGEN SATURATION 85.6 % (92.0-98.5); BG OXYHEMOGLOBIN 83.4 % (94.0-97.0); BG PCO2 33.7 mmHg (35.0-45.0); BG PH 7.307 (7.350-7.450); BG PO2 59.3 mmHg (75.0-100.0); BG SAMPLE SITE RIGHT BRACHIAL; BG TIDAL VOLUME(mL) 450 mL; BG VENT MODE VENT - A/C; BG VENT RATE 14 set
[2019-12-07] MEDS: MEGESTROL ACETATE 40MG TABLET PO SCH ×2 (09:34→18:03)
[2019-12-07] MEDS ORDERED: FENTANYL CITRATE/PF 1,000 MCG in SODIUM CHLORIDE 0.9% 80 ML IV PRN (10:00)
[2019-12-07] MEDS: COLISTIMETHATE SODIUM IV SCH ×2 (10:07→21:35)
[2019-12-07] MEDS: SODIUM CHLORIDE 0.9% IV SCH ×2 (10:07→21:35)
[2019-12-07] MEDS: VASOPRESSIN 20 UNIT in SODIUM CHLORIDE 0.9% 99 ML IV PRN ×2 (10:39→18:01)
[2019-12-07 11:49] LABS: PLATELET ESTIMATE MARKEDLY DECREASED
[2019-12-07 11:52] LABS: PLATELET 32 x1000/uL (130-400)
[2019-12-07] MEDS: SODIUM BICARBONATE 100 MEQ in DEXTROSE 5% WATER 1,000 ML IV SCH ×2 (12:31→21:35)
[2019-12-07] MEDS: PHENYLEPHRINE 100 MG in DEXT 5% WATER 240 ML IV PRN (14:37)
[2019-12-07] MEDS: MEROPENEM 1,000 MG in SODIUM CHLORIDE 0.9% 100 ML IV SCH (18:03)
[2019-12-07] MEDS: IPRATROPIUM/ALBUTEROL 0.5-3(2.5)MG/3ML NEB HHN SCH (21:27)
[2019-12-07] MEDS: FAMOTIDINE 20MG TABLET PO SCH (21:34)
[2019-12-07] MEDS ORDERED: SODIUM CHLORIDE 0.9% 1,000 ML IV ONE (22:30)
[2019-12-08] VITALS (89 sets, daily range): BP systolic 0–153; BP diastolic 0–119
[2019-12-08] MEDS: VASOPRESSIN 20 UNIT in SODIUM CHLORIDE 0.9% 99 ML IV PRN ×3 (00:18→22:35)
[2019-12-08] MEDS: IPRATROPIUM/ALBUTEROL 0.5-3(2.5)MG/3ML NEB HHN SCH ×4 (01:26→20:58)
[2019-12-08] MEDS: MEROPENEM 1,000 MG in SODIUM CHLORIDE 0.9% 100 ML IV SCH ×2 (05:57→17:11)
[2019-12-08] MEDS: SODIUM BICARBONATE 100 MEQ in DEXTROSE 5% WATER 1,000 ML IV SCH (05:57)
[2019-12-08] MEDS: PHENYLEPHRINE 100 MG in DEXT 5% WATER 240 ML IV PRN (06:02)
[2019-12-08] MEDS: BLOOD SUGAR DIAGNOSTIC STRIP TEST SCH ×4 (06:10→17:11)
[2019-12-08] MEDS: INSULIN LISPRO 100 UNITS/ML SUBCUT SCH ×4 (06:10→17:20)
[2019-12-08 07:19] LABS: HEMATOCRIT. 22.2 % (36.0-48.0); HEMOGLOBIN. 7.5 g/dL (12.0-16.0); MEAN CORPUSCULAR HEMOGLOBIN 27.4 pg (28.0-32.0); MEAN CORPUSCULAR VOLUME 81.6 fL (81.0-99.0); RED BLOOD CELL COUNT 2.72 mill/uL (4.2-5.4); RED CELL DISTRIBUTION WIDTH 16.6 % (11.6-14.6)
[2019-12-08 07:23] LABS: CHLORIDE 102 mEq/L (98-107)
[2019-12-08 07:30] LABS: PLATELET 12 x1000/uL (130-400)
[2019-12-08] MEDS: COLISTIMETHATE SODIUM IV SCH ×2 (08:30→20:59)
[2019-12-08] MEDS: SODIUM CHLORIDE 0.9% IV SCH ×2 (08:30→20:59)
[2019-12-08] MEDS: MEGESTROL ACETATE 40MG TABLET PO SCH ×2 (08:31→16:57)
[2019-12-08] MEDS: DEXT 5%/0.9% NACL 1,000 ML IV SCH (08:32)
[2019-12-08 08:53] LABS: BG BASE EXCESS -10.1 mmol/L (-2.0-2.0); BG CARBOXYHEMOGLOBIN 1.9 % (0.5-1.5); BG DEOXYHEMOGLOBIN 13.3 % (0.0-5.0); BG FRACTION INSPIRED OXYGEN 100; BG HCO3 ACT 14.5 mmol/L (22.0-26.0); BG METHEMOGLOBIN 0.3 % (0.0-1.5); BG OXYGEN SATURATION 86.4 % (92.0-98.5); BG OXYHEMOGLOBIN 84.5 % (94.0-97.0); BG PH 7.347 (7.350-7.450); BG PO2 57.6 mmHg (75.0-100.0); BG SAMPLE SITE LEFT BRACHIAL; BG TIDAL VOLUME(mL) 450 mL; BG TOTAL HEMOGLOBIN 7.9 g/dL (12.0-18.0); BG VENT MODE VENT - A/C; BG VENT RATE 16 set
[2019-12-08] MEDS ORDERED: SODIUM BICARBONATE 8.4% 1 MEQ/ML 50ML SYR IV NR ×2 (09:00→14:45)
[2019-12-08] MEDS ORDERED: FILGRASTIM 300 MCG/ML VIAL SUBCUT SCH (10:00)
[2019-12-08] MEDS ORDERED: LIDOCAINE HCL 1% 20ML VIAL (Pyxis) INJ ONE ×2 (10:30→14:22)
[2019-12-08 11:33] LABS: BG BASE EXCESS -7.2 mmol/L (-2.0-2.0); BG CARBOXYHEMOGLOBIN 1.8 % (0.5-1.5); BG FRACTION INSPIRED OXYGEN 100; BG HCO3 ACT 18.3 mmol/L (22.0-26.0); BG METHEMOGLOBIN 0.3 % (0.0-1.5); BG OXYGEN SATURATION 80.6 % (92.0-98.5); BG OXYHEMOGLOBIN 78.9 % (94.0-97.0); BG PCO2 36.5 mmHg (35.0-45.0); BG PH 7.317 (7.350-7.450); BG PO2 52.7 mmHg (75.0-100.0); BG SAMPLE SITE LEFT BRACHIAL; BG TIDAL VOLUME(mL) 450 mL; BG TOTAL HEMOGLOBIN 7.6 g/dL (12.0-18.0); BG VENT MODE VENT - A/C; BG VENT RATE 20 set
[2019-12-08] MEDS: NOREPINEPHRINE 32 MG in DEXT 5% WATER 218 ML IV PRN (13:46)
[2019-12-08 14:04] LABS: BG BASE EXCESS -8.6 mmol/L (-2.0-2.0); BG CARBOXYHEMOGLOBIN 1.7 % (0.5-1.5); BG DEOXYHEMOGLOBIN 12.7 % (0.0-5.0); BG FRACTION INSPIRED OXYGEN 100; BG HCO3 ACT 17.3 mmol/L (22.0-26.0); BG METHEMOGLOBIN 0.3 % (0.0-1.5); BG OXYHEMOGLOBIN 85.3 % (94.0-97.0); BG PCO2 37.1 mmHg (35.0-45.0); BG PH 7.287 (7.350-7.450); BG PO2 62.6 mmHg (75.0-100.0); BG SAMPLE SITE A-LINE; BG TIDAL VOLUME(mL) 450 mL; BG TOTAL HEMOGLOBIN 6.8 g/dL (12.0-18.0); BG VENT MODE VENT - A/C; BG VENT RATE 20 set
[2019-12-08] MEDS: SODIUM BICARBONATE 150 MEQ in DEXTROSE 5% WATER 1,000 ML IV SCH (16:28)
[2019-12-08] MEDS ORDERED: VANCOMYCIN 1 G PREMIX 200 ML IV NR (17:00)
[2019-12-08 18:17] LABS: HEMATOCRIT. 28.4 % (36.0-48.0); HEMOGLOBIN. 9.4 g/dL (12.0-16.0); MEAN CORPUSCULAR HEMOGLOBIN 27.8 pg (28.0-32.0); MEAN CORPUSCULAR VOLUME 84.2 fL (81.0-99.0); MEAN PLATELET VOLUME 9.4 fl (7.4-10.4); RED BLOOD CELL COUNT 3.38 mill/uL (4.2-5.4); RED CELL DISTRIBUTION WIDTH 16.1 % (11.6-14.6)
[2019-12-08 18:22] LABS: PLATELET 32 x1000/uL (130-400)
[2019-12-08 18:54] LABS: PLATELET ESTIMATE MARKEDLY DECREASED
[2019-12-08] MEDS: FAMOTIDINE 20MG TABLET PO SCH (21:41)
[2019-12-08] MEDS: FILGRASTIM-TBO 300 MCG/0.5 ML SYRINGE SQ SCH (21:41)
[2019-12-09] VITALS (95 sets, daily range): BP systolic 16–211; BP diastolic 5–211
[2019-12-09] MEDS: IPRATROPIUM/ALBUTEROL 0.5-3(2.5)MG/3ML NEB HHN SCH ×4 (01:49→20:28)
[2019-12-09] MEDS ORDERED: VANCOMYCIN 750 MG PREMIX 150 ML IV SCH (04:00)
[2019-12-09] MEDS: MEROPENEM 1,000 MG in SODIUM CHLORIDE 0.9% 100 ML IV SCH ×2 (05:17→17:50)
[2019-12-09] MEDS: PHENYLEPHRINE 100 MG in DEXT 5% WATER 240 ML IV PRN ×2 (05:23→19:43)
[2019-12-09] MEDS: NOREPINEPHRINE 32 MG in DEXT 5% WATER 218 ML IV PRN ×2 (05:24→21:16)
[2019-12-09] MEDS: INSULIN LISPRO 100 UNITS/ML SUBCUT SCH ×4 (06:00→18:00)
[2019-12-09] MEDS: BLOOD SUGAR DIAGNOSTIC STRIP TEST SCH ×4 (06:47→18:07)
[2019-12-09] MEDS: SODIUM BICARBONATE 150 MEQ in DEXTROSE 5% WATER 1,000 ML IV SCH (06:49)
[2019-12-09 07:47] LABS: HEMOGLOBIN. 9.5 g/dL (12.0-16.0); MEAN CORPUSCULAR HEMOGLOBIN 28.4 pg (28.0-32.0); MEAN CORPUSCULAR VOLUME 83.8 fL (81.0-99.0); MEAN PLATELET VOLUME 9.6 fl (7.4-10.4); RED BLOOD CELL COUNT 3.34 mill/uL (4.2-5.4); RED CELL DISTRIBUTION WIDTH 16.3 % (11.6-14.6)
[2019-12-09 08:11] LABS: CHLORIDE 98 mEq/L (98-107)
[2019-12-09 08:26] LABS: NUCLEATED RED BLOOD CELLS 1 /100 WBC; PLATELET ESTIMATE MARKEDLY DECREASED
[2019-12-09] MEDS: MEGESTROL ACETATE 40MG TABLET PO SCH ×2 (09:00→17:50)
[2019-12-09] MEDS: SODIUM CHLORIDE 0.9% IV SCH ×2 (09:00→22:16)
[2019-12-09] MEDS: COLISTIMETHATE SODIUM IV SCH ×2 (09:00→22:16)
[2019-12-09 09:05] LABS: BG BASE EXCESS -9.8 mmol/L (-2.0-2.0); BG CARBOXYHEMOGLOBIN 1.7 % (0.5-1.5); BG DEOXYHEMOGLOBIN 13.6 % (0.0-5.0); BG FRACTION INSPIRED OXYGEN 100; BG HCO3 ACT 14.9 mmol/L (22.0-26.0); BG METHEMOGLOBIN 0.2 % (0.0-1.5); BG OXYGEN SATURATION 86.1 % (92.0-98.5); BG OXYHEMOGLOBIN 84.5 % (94.0-97.0); BG PCO2 28.3 mmHg (35.0-45.0); BG PH 7.338 (7.350-7.450); BG PO2 53.7 mmHg (75.0-100.0); BG SAMPLE SITE A-LINE; BG TIDAL VOLUME(mL) 450 mL; BG VENT MODE VENT - A/C; BG VENT RATE 24 set
[2019-12-09 11:04] LABS: PLATELET ESTIMATE MARKEDLY DECREASED
[2019-12-09 11:05] LABS: PLATELET 19 x1000/uL (130-400)
[2019-12-09] MEDS: DEXTROSE 50% WATER 50ML SYRINGE IV PRN (13:21)
[2019-12-09] MEDS: VASOPRESSIN 20 UNIT in SODIUM CHLORIDE 0.9% 99 ML IV PRN (16:34)
[2019-12-09] MEDS: FILGRASTIM-TBO 300 MCG/0.5 ML SYRINGE SQ SCH (20:28)
[2019-12-09] MEDS: FAMOTIDINE 20MG TABLET PO SCH (20:28)
[2019-12-10] MEDS ORDERED: VANCOMYCIN 750 MG PREMIX 150 ML IV SCH
== END 2019-12-09 23:09 | disposition expired | DRG 871 ==
LOC: ER 11:47 → 6EST 15:13 → ENRESERV 15:39 → ER 16:49 → CVICU 12-07 01:18
PROVIDERS: ADMIT Internal Medicine; ATTEND Internal Medicine
PROC: 5A1945Z Respiratory Ventilation, 24-96 Consecutive Hours (ICD-10-PCS; principal; 2019-12-07)
PROC: 30233N1 Transfusion of Nonautologous Red Blood Cells into Peripheral Vein, Percutaneous Approach (ICD-10-PCS; 2019-12-07)
PROC: 0BH17EZ Insertion of Endotracheal Airway into Trachea, Via Natural or Artificial Opening (ICD-10-PCS; 2019-12-07)
PROC: 04HK33Z Insertion of Infusion Device into Right Femoral Artery, Percutaneous Approach (ICD-10-PCS; 2019-12-08)
PROC: 05HY33Z Insertion of Infusion Device into Upper Vein, Percutaneous Approach (ICD-10-PCS; 2019-12-08)
PROC: B54MZZA Ultrasonography of Right Upper Extremity Veins, Guidance (ICD-10-PCS; 2019-12-08)
DX: A41.9 Sepsis, unspecified organism (principal); E43 Unspecified severe protein-calorie malnutrition; J96.00 Acute respiratory failure, unspecified whether with hypoxia or hypercapnia; R65.21 Severe sepsis with septic shock; J96.01 Acute respiratory failure with hypoxia; J69.0 Pneumonitis due to inhalation of food and vomit; N39.0 Urinary tract infection, site not specified; C56.9 Malignant neoplasm of unspecified ovary; Z68.1 Body mass index [BMI] 19.9 or less, adult; Z16.24 Resistance to multiple antibiotics; E87.2 Acidosis; D61.818 Other pancytopenia; E11.9 Type 2 diabetes mellitus without complications; E87.6 Hypokalemia; Y95 Nosocomial condition; I10 Essential (primary) hypertension; L89.219 Pressure ulcer of right hip, unspecified stage; L89.890 Pressure ulcer of other site, unstageable; F03.90 Unspecified dementia, unspecified severity, without behavioral disturbance, psychotic disturbance, mood disturbance, and anxiety; K80.20 Calculus of gallbladder without cholecystitis without obstruction; N27.0 Small kidney, unilateral; R59.9 Enlarged lymph nodes, unspecified; Z66 Do not resuscitate; Z85.43 Personal history of malignant neoplasm of ovary; Z86.718 Personal history of other venous thrombosis and embolism; Z22.322 Carrier or suspected carrier of Methicillin resistant Staphylococcus aureus; Z92.3 Personal history of irradiation; Z78.1 Physical restraint status; Z79.4 Long term (current) use of insulin; D63.8 Anemia in other chronic diseases classified elsewhere; B96.89 Other specified bacterial agents as the cause of diseases classified elsewhere
CPT/HCPCS: 36415; 36600; 71045; 74177; 76700; 76937; 80048; 80053; 81003; 82040; 82375; 82550; 82553; 82805; 82962; 83036; 83605; 83735; 83880; 84100; 84134; 84145; 84484; 85025; 85379; 86850; 86870; 86900; 86920; 86945; 87070; 87077; 87186; 92610; 93005; 93970; 94002; 94003; 94640; 99285; C1725; J0692; J0696; J0713; J0770; J1442; J1815; J1885; J1956; J2185; J2250; J2370; J3370; J3475; J3480; J3490; J7030; J7042; J7050; J7060; J7070; P9016; P9034; Q9967